=== PATIENT | male | born 1960 | race Caucasian/White ===

== ENCOUNTER 2017-04-26 14:37 | Emergency (ER) | payer MEDICAID ==
[~2017-04-26] VITALS: Ht 165.1 cm; Wt 77.0 kg
[2017-04-26] MEDS ORDERED: TETANUS, DIPHTHERIA, PERTUSSIS VAC/PF 0.5ML (>7YR OLD) IM ONE (15:30)
[2017-04-26] MEDS ORDERED: BACITRACIN ZINC OINT UDPKT TOP ONE (16:15)
[2017-04-26] MEDS ORDERED: LIDOCAINE HCL 1% 20ML VIAL (Pyxis) INJ INFIL ONE (16:30)
[2017-04-26] MEDS ORDERED: CEFAZOLIN SODIUM 1000MG/VIAL IM ONE (17:00)
[2017-04-26] MEDS ORDERED: STERILE WATER FOR INJECTION 10ML VIAL ONE (17:14)
[2017-04-26 18:10] VITALS: BP 128/77
== END 2017-04-26 18:04 | disposition home or self-care (01) ==
LOC: ER 15:48
DX: S61.412A Laceration without foreign body of left hand, initial encounter (principal); W45.8XXA Other foreign body or object entering through skin, initial encounter; Y93.89 Activity, other specified; Y92.89 Other specified places as the place of occurrence of the external cause; Y99.8 Other external cause status
CPT/HCPCS: 12002; 73130; 90471; 90715; 96372; 99284; A4216; J0690; J3490; X7700; Z7610